=== PATIENT | female | born 1940 | race Caucasian/White ===

== ENCOUNTER 2016-09-23 12:45 | Inpatient (IN) ==
--- NOTE | 2016-09-23 12:52 | Emergency Department Note ---
Disposition Clinical Impression: Pneumonia Qualifiers: Pneumonia type: due to unspecified organism Laterality: right Lung location: upper lobe of lung Qualified Code(s): J18.1 - Lobar pneumonia, unspecified organism CHF (congestive heart failure) Qualifiers: Congestive heart failure type: unspecified congestive heart failure type Congestive heart failure chronicity: acute on chronic Qualified Code(s): I50.9 - Heart failure, unspecified Disposition: Admitted As Inpatient Condition: Good Referrals: Babatunde Messina DO [Primary Care Provider] - Forms: ED Satisfaction Letter Time of Disposition: 14:15 Altered Mental Status HPI - General Chief Complaint: ED Altered Mental Status Stated Complaint: Increased confusion, syncopal episodes - History of Present Illness HPI Narrative: Patient presents to the emergency department with and health care worker. They report intermittent episodes of near syncopal episodes. The patient has a history of either mitral valve regurg or mitral valve stenosis which apparently is nonoperable secondary to the patient's comorbidities. They have been told these episodes are to be expected and they have been instructed to limit the patient's exertional activities. Refractory Technician states that she has not had any of these episodes for the past 3-4 days. Presentation today is for evaluation of some increasing confusion over the past 24-48 hours. They also state the patient has had a nonproductive cough with some occasional wheezing and congestion. No fever or chills. No complaints of headache. No speech changes. No ataxia or gait changes. Patient is alert and oriented to person and place, somewhat confused as to the date. She is a fair historian and follows all commands appropriately. She denies any specific complaints at time of evaluation. - Related Data Home Medications Medication Instructions Recorded Confirmed Aspirin Enteric Coated [Aspirin EC] 325 mg PO DAILY 12/03/14 09/23/16 Melatonin [Melatin] 5 mg PO HS 12/03/14 09/23/16 Metoprolol [Lopressor] 100 mg PO BID 12/03/14 09/23/16 Venlafaxine [Effexor] 37.5 mg PO DAILY 12/03/14 09/23/16 Calcitriol [Rocaltrol] 0.25 mcg PO DAILY 09/23/16 09/23/16 Carbidopa/Levodopa 25/100 [Sinemet 1 each PO TID 09/23/16 09/23/16 25/100] Furosemide [Lasix] 20 mg PO BID 09/23/16 09/23/16 Mirtazapine [Remeron] 15 mg PO HS 09/23/16 09/23/16 Omeprazole [PriLOSEC] 20 mg PO DAILY 09/23/16 09/23/16 Potassium Chloride [K-Tab ER] 20 meq PO DAILY 09/23/16 09/23/16 Quetiapine Fumarate [SEROquel] 25 mg PO HS 09/23/16 09/23/16 Allergies Allergy/AdvReac Type Severity Reaction Status Date / Time amitriptyline [From Elavil] Allergy Hives Verified 12/03/14 11:48 clarithromycin [From Biaxin] Allergy Hives Verified 12/03/14 11:48 codeine Allergy See Verified 02/16/15 11:31 Comments Erythromycin Base Allergy Hives Verified 12/03/14 11:48 fluticasone Allergy Hives Verified 12/03/14 11:48 [From Advair Diskus] gabapentin Allergy Hives Verified 12/03/14 11:48 guaifenesin [From Mucinex] Allergy Hives Verified 12/03/14 11:48 levofloxacin [From Levaquin] Allergy Hives Verified 12/03/14 11:48 Penicillins Allergy Hives Verified 12/03/14 11:48 povidone-iodine Allergy Rash Verified 02/16/15 11:31 [From Betadine] prochlorperazine Allergy Hives Verified 12/03/14 11:48 [From Compazine] salmeterol Allergy Hives Verified 12/03/14 11:48 [From Advair Diskus] soap [From Betadine] Allergy Rash Verified 02/16/15 11:31 Streptomycin Allergy Hives Verified 12/03/14 11:48 Zafirlukast [From Accolate] Allergy Hives Verified 12/03/14 11:48 Constitutional: Denies: fever, chills Eyes: Denies: vision change ENT ED: Reports: congestion Cardiovascular: Reports: dyspnea on exertion (Chronic dyspnea), syncope (As per history of present illness). Denies: chest pain, palpitations Respiratory: Reports: cough, wheezes. Denies: hemoptysis, sputum production Gastrointestinal: Denies: abdominal pain, nausea, vomiting, diarrhea Genitourinary: Denies: urgency, dysuria, frequency Musculoskeletal: Denies: back pain, neck pain Integumentary: Denies: rash Neurological: Reports: as per HPI. Denies: headache Past Medical History - Past Medical History Medical history: Reports: asthma, atrial fibrillation, CHF, CVA, dementia, hypertension, migraine, TIA, other Surgical history: Reports: heart valve replacement, hysterectomy Psychiatric history: Reports: anxiety, depression - Social History Smoking Status: Never smoker Smokeless Tobacco Status: No Alcohol use: Reports: none Drug use: Reports: none Physical Exam - General Limitations: no limitations General appearance: alert, in no apparent distress - Head Head exam: atraumatic - Eye Eye exam: Present: EOMI, other (Right pupil is slightly larger than the left. 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 Absent: scleral icterus - Neck Neck exam: Present: normal inspection, full ROM. Absent: tenderness, meningismus - Respiratory Respiratory exam: Present: wheezes (Mild inspiratory expiratory wheezes. Speaking in full sentences.). Absent: respiratory distress - Cardiovascular Cardiovascular exam: Present: bradycardia, other (Atrial fibrillation) - Abdominal Exam Abdominal exam: Present: soft, Non-Tender, normal bowel sounds - Extremities Exam Extremities exam: Present: normal inspection, normal capillary refill. Absent: tenderness, joint swelling, calf tenderness - Expanded Lower Extremity Exam Neurovascular/Tendon exam: Present: normal capillary refill. Absent: pulse deficit, motor deficit, sensory deficit - Back Exam Back exam: Absent: CVA tenderness (R), CVA tenderness (L), muscle spasm - Neurological Exam Neurological exam: Present: alert, CN II-XII intact. Absent: motor sensory deficit - Psychiatric Psychiatric exam: Present: normal affect, normal mood - Skin Skin exam: Present: warm, dry, intact, normal color Course Vital Signs O2 Sat by Pulse Oximetry 98 09/23/16 12:47 Temperature 98.7 F 09/23/16 12:52 Pulse Rate 53 09/23/16 12:52 Respiratory Rate 20 09/23/16 12:52 Blood Pressure 127/73 09/23/16 12:52 O2 Sat by Pulse Oximetry 98 09/23/16 12:52 Oxygen Delivery Oxygen Delivery Nasal Cannula Altered Mental Status - Lab Data Lab results reviewed: Yes I reviewed the patient's lab results. Result diagrams: 09/23/16 13:15 09/23/16 13:15 Lab Results 09/23/16 09/23/16 09/23/16 Range/Units 13:00 13:00 13:15 WBC 8.1 (4.3-11.1) K/mcL RBC 2.99 L (3.82-4.97) M/mcL Hgb 9.8 L (11.5-15.4) g/dL Hct 30.2 L (35.3-44.9) % MCV 101.0 H (83.0-100.0) fL MCH 32.8 (28.0-33.3) pg MCHC 32.5 (31.6-35.5) g/dL RDW 14.5 (11.5-14.5) % Plt Count 160 (140-400) K/mcL MPV 11.0 (9.4-12.4) fL Immature Gran % 0.2 (0-4) % Seg Neutrophils % 82.0 % Lymphocytes % 3.3 % Monocytes % 13.4 % Eosinophils % 0.7 % Basophils % 0.4 % Neutrophils # 6.7 (1.6-8.9) K/mcL Lymphocytes # 0.3 L (0.6-4.6) K/mcL Monocytes # 1.1 (0.0-1.3) K/mcL Eosinophils # 0.1 (0.0-0.6) K/mcL Basophils # 0.0 (0.0-0.2) K/mcL PT (9.4-12.1) Seconds INR APTT (26.0-36.0) Seconds ABG pH (7.32-7.45) pH Units ABG pCO2 (35-45) mmHg ABG pO2 (85-104) mmHg ABG HCO3 (21-27) mEQ/L ABG Total CO2 (20-26) mEq/L ABG O2 Saturation (95-98) % ABG Base Excess (-2.0 to 3.0) mEq/L Liter Flow L/MIN Blood Gas Modality Inspired O2 % Sodium (136-145) mEq/L Potassium (3.5-4.5) mEq/L Chloride (98-109) mEq/L Carbon Dioxide (19-29) mEq/L BUN (7-20) mg/dL Creatinine (0.57-1.11) mg/dL Est GFR ( Amer) (> 60) Est GFR (Non-Af Amer) (> 60) BUN/Creatinine Ratio (6-26) Glucose (70-99) mg/dL Calculated Osmolality (280-300) Calcium (8.6-10.8) mg/dL Total Bilirubin (0.2-1.2) mg/dL Direct Bilirubin (0.0-0.5) mg/dL Indirect Bilirubin (0.0-1.2) mg/dL AST (5-34) Units/L ALT (0-55) Units/L Alkaline Phosphatase (38-126) Units/L Ammonia (18-72) mcmol/L Creatine Kinase (29-168) Units/L Troponin I (0-0.03) ng/mL B-Natriuretic Peptide 1055 H (0-100) pg/mL Serum Total Protein (6.0-8.3) g/dL Albumin (3.5-5.0) g/dL Globulin (2.4-3.5) g/dL Albumin/Globulin Ratio (1.1-2.2) Digoxin < 0.3 L (0.8-2.0) ng/mL Ethyl Alcohol (0-10) mg/dL 09/23/16 09/23/16 09/23/16 Range/Units 13:15 13:15 13:15 WBC (4.3-11.1) K/mcL RBC (3.82-4.97) M/mcL Hgb (11.5-15.4) g/dL Hct (35.3-44.9) % MCV (83.0-100.0) fL MCH (28.0-33.3) pg MCHC (31.6-35.5) g/dL RDW (11.5-14.5) % Plt Count (140-400) K/mcL MPV (9.4-12.4) fL Immature Gran % (0-4) % Seg Neutrophils % % Lymphocytes % % Monocytes % % Eosinophils % % Basophils % % Neutrophils # (1.6-8.9) K/mcL Lymphocytes # (0.6-4.6) K/mcL Monocytes # (0.0-1.3) K/mcL Eosinophils # (0.0-0.6) K/mcL Basophils # (0.0-0.2) K/mcL PT 12.7 H (9.4-12.1) Seconds INR 1.2 APTT 28.7 (26.0-36.0) Seconds ABG pH (7.32-7.45) pH Units ABG pCO2 (35-45) mmHg ABG pO2 (85-104) mmHg ABG HCO3 (21-27) mEQ/L ABG Total CO2 (20-26) mEq/L ABG O2 Saturation (95-98) % ABG Base Excess (-2.0 to 3.0) mEq/L Liter Flow L/MIN Blood Gas Modality Inspired O2 % Sodium 146 H (136-145) mEq/L Potassium 3.4 L (3.5-4.5) mEq/L Chloride 101 (98-109) mEq/L Carbon Dioxide 33 H (19-29) mEq/L BUN 28 H (7-20) mg/dL Creatinine 1.63 H (0.57-1.11) mg/dL Est GFR ( Amer) 37 L (> 60) Est GFR (Non-Af Amer) 31 L (> 60) BUN/Creatinine Ratio 17 (6-26) Glucose 110 H (70-99) mg/dL Calculated Osmolality 308 H (280-300) Calcium 9.0 (8.6-10.8) mg/dL Total Bilirubin 0.7 (0.2-1.2) mg/dL Direct Bilirubin 0.3 (0.0-0.5) mg/dL Indirect Bilirubin 0.4 (0.0-1.2) mg/dL AST 19 (5-34) Units/L ALT < 6 (0-55) Units/L Alkaline Phosphatase 88 (38-126) Units/L Ammonia 22 (18-72) mcmol/L Creatine Kinase 82 (29-168) Units/L Troponin I (0-0.03) ng/mL B-Natriuretic Peptide (0-100) pg/mL Serum Total Protein 6.6 (6.0-8.3) g/dL Albumin 3.5 (3.5-5.0) g/dL Globulin 3.1 (2.4-3.5) g/dL Albumin/Globulin Ratio 1.1 (1.1-2.2) Digoxin (0.8-2.0) ng/mL Ethyl Alcohol < 10 (0-10) mg/dL 09/23/16 09/23/16 Range/Units 13:15 13:18 WBC (4.3-11.1) K/mcL RBC (3.82-4.97) M/mcL Hgb (11.5-15.4) g/dL Hct (35.3-44.9) % MCV (83.0-100.0) fL MCH (28.0-33.3) pg MCHC (31.6-35.5) g/dL RDW (11.5-14.5) % Plt Count (140-400) K/mcL MPV (9.4-12.4) fL Immature Gran % (0-4) % Seg Neutrophils % % Lymphocytes % % Monocytes % % Eosinophils % % Basophils % % Neutrophils # (1.6-8.9) K/mcL Lymphocytes # (0.6-4.6) K/mcL Monocytes # (0.0-1.3) K/mcL Eosinophils # (0.0-0.6) K/mcL Basophils # (0.0-0.2) K/mcL PT (9.4-12.1) Seconds INR APTT (26.0-36.0) Seconds ABG pH 7.46 H (7.32-7.45) pH Units ABG pCO2 46 H (35-45) mmHg ABG pO2 91 (85-104) mmHg ABG HCO3 32.7 H (21-27) mEQ/L ABG Total CO2 34.1 H (20-26) mEq/L ABG O2 Saturation 97 (95-98) % ABG Base Excess 8.8 H (-2.0 to 3.0) mEq/L Liter Flow 2 L/MIN Blood Gas Modality NC Inspired O2 28 % Sodium (136-145) mEq/L Potassium (3.5-4.5) mEq/L Chloride (98-109) mEq/L Carbon Dioxide (19-29) mEq/L BUN (7-20) mg/dL Creatinine (0.57-1.11) mg/dL Est GFR ( Amer) (> 60) Est GFR (Non-Af Amer) (> 60) BUN/Creatinine Ratio (6-26) Glucose (70-99) mg/dL Calculated Osmolality (280-300) Calcium (8.6-10.8) mg/dL Total Bilirubin (0.2-1.2) mg/dL Direct Bilirubin (0.0-0.5) mg/dL Indirect Bilirubin (0.0-1.2) mg/dL AST (5-34) Units/L ALT (0-55) Units/L Alkaline Phosphatase (38-126) Units/L Ammonia (18-72) mcmol/L Creatine Kinase (29-168) Units/L Troponin I 0.02 (0-0.03) ng/mL B-Natriuretic Peptide (0-100) pg/mL Serum Total Protein (6.0-8.3) g/dL Albumin (3.5-5.0) g/dL Globulin (2.4-3.5) g/dL Albumin/Globulin Ratio (1.1-2.2) Digoxin (0.8-2.0) ng/mL Ethyl Alcohol (0-10) mg/dL ITS Impressions Chest X-Ray 09/23/16 12:50 IMPRESSION: Right upper lobe patchy airspace disease suggesting developing pneumonia. Cardiomegaly and mild central pulmonary edema suggesting mild CHF. D/ / 09/23/2016 14:00:03 Lito Cuevas MD / manny Interpreting Provider: Lito Cuevas MD Head CT 09/23/16 12:51 IMPRESSION: 1. No acute intracranial abnormality. 2. Findings compatible with chronic small vessel ischemic disease. Chronic encephalomalacia in the left occipital lobe and right cerebellar hemisphere unchanged from 2015. D/ / Andi Fried MD / Andi Fried MD Interpreting Provider: Andi Fried MD - Radiology Data Radiology results reviewed: Yes I reviewed the patient's radiology results. - EKG Data EKG attestation: Yes I reviewed and interpreted this EKG. Rate: bradycardia (Atrial fibrillation. bradycardia. nonspecific ST segment and T-wave changes ) TPA Checklist - LKW: 3-4.5 hrs Add. Warnings/Precautions Patient/family understanding: The patient/family members have been counseled and understood the risk, benefit , and alternatives of treatment.
[2016-09-23 13:21] LABS: Basophils % 0.4 %; Eosinophils # 0.1 K/mcL (0.0-0.6); Eosinophils % 0.7 %; Hematocrit 30.2 % (35.3-44.9); Hemoglobin 9.8 g/dL (11.5-15.4); Immature Granulocytes % 0.2 % (0-4); Lymphocytes # 0.3 K/mcL (0.6-4.6); Lymphocytes % 3.3 %; Mean Corpuscular HGB Conc 32.5 g/dL (31.6-35.5); Mean Corpuscular Hemoglobin 32.8 pg (28.0-33.3); Monocytes # 1.1 K/mcL (0.0-1.3); Monocytes % 13.4 %; Neutrophils # 6.7 K/mcL (1.6-8.9); Platelet Count 160 K/mcL (140-400); Red Blood Count 2.99 M/mcL (3.82-4.97); Red Cell Distribution Width 14.5 % (11.5-14.5)
[2016-09-23 13:24] LABS: INR 1.2; Prothrombin Time 12.7 Seconds (9.4-12.1)
[2016-09-23 13:26] LABS: ABG Base Excess 8.8 mEq/L (-2.0 to 3.0); ABG HCO3 32.7 mEQ/L (21-27); ABG Oxygen Saturation 97 % (95-98); ABG PCO2 46 mmHg (35-45); ABG PH 7.46 pH Units (7.32-7.45); ABG PO2 91 mmHg (85-104); ABG TCO2 34.1 mEq/L (20-26); Blood Gas FiO2 28 %; Blood Gas Liter Flow 2 L/MIN
[2016-09-23 13:27] LABS: Activated Partial Thrombo Time 28.7 Seconds (26.0-36.0)
[2016-09-23 13:39] LABS: Alanine Aminotransferase < 6 Units/L (0-55); Albumin 3.5 g/dL (3.5-5.0); Albumin/Globulin Ratio 1.1 (1.1-2.2); Alkaline Phosphatase 88 Units/L (38-126); Aspartate Amino Transferase 19 Units/L (5-34); BUN/Creatinine Ratio 17 (6-26); Bilirubin,Direct 0.3 mg/dL (0.0-0.5); Bilirubin,Indirect 0.4 mg/dL (0.0-1.2); Bilirubin,Total 0.7 mg/dL (0.2-1.2); Blood Urea Nitrogen 28 mg/dL (7-20); Carbon Dioxide 33 mEq/L (19-29); Chloride 101 mEq/L (98-109); Creatine Kinase 82 Units/L (29-168); Ethanol < 10 mg/dL (0-10); Globulin 3.1 g/dL (2.4-3.5); Glucose 110 mg/dL (70-99); Osmolality,Calculated 308 (280-300); Potassium 3.4 mEq/L (3.5-4.5); Sodium 146 mEq/L (136-145); Total Protein 6.6 g/dL (6.0-8.3); eGFR For African Americans 37 (> 60); eGFR For Non-African Americans 31 (> 60)
[2016-09-23 14:01] LABS: Thyroid Stimulating Hormone 1.701 mcIU/mL (0.350-4.840)
[2016-09-23] MEDS ORDERED: Doxycycline 100 MG in 0.9 % Sodium Chloride Mini Bag 100 ML IVPB ONE (14:12)
[2016-09-23] MEDS ORDERED: Furosemide 20 MG/2 ML VIAL IVP ONE (14:13)
[2016-09-23 14:30] LABS: Bilirubin,Urine Negative (Negative); Blood,Urine Trace-intact (Negative); Clarity,Urine Clear (Clear); Color,Urine Yellow (Yellow); Glucose,Urine (UA) Normal (Normal); Ketones,Urine Negative (Negative); Leukocyte Esterase,Urine Negative (Negative); Nitrite,Urine Negative (Negative); Protein,Urine Negative (Neg-Trace); Specific Gravity,Urine 1.015 (1.010-1.025); Urobilinogen,Urine Normal (Normal)
[2016-09-23 14:37] LABS: RBC,Urine 0-3 per hpf (0-3); Squamous Epithelial Cell,Urine Few per lpf (None-Few); WBC,Urine 0-3 per hpf (0-3)
--- NOTE | 2016-09-23 19:07 | Internal Med History&Physical ---
Date of Encounter: 09/23/16 Time of Encounter: 18:30 Assessment and Plan (1) Pneumonia Current visit: Yes Status: Acute She has been started on Rocephin and doxycycline. Lactobacillus will be added. Further workup will be done as needed. Qualifiers: Pneumonia type: due to unspecified organism Laterality: right Lung location: upper lobe of lung Qualified Code(s): J18.1 - Lobar pneumonia, unspecified organism (2) Anemia Current visit: Yes Status: Acute We will order anemia testing in a.m. Qualifiers: Anemia type: unspecified type Qualified Code(s): D64.9 - Anemia, unspecified (3) CKD (chronic kidney disease) stage 3, GFR 30-59 ml/min Current visit: Yes Status: Acute We will adjust medications and monitor renal indices. (4) Atrial fibrillation Current visit: Yes Status: Acute She was on Coumadin previously and had IC hemorrhage. Will remain on aspirin for now. Qualifiers: Atrial fibrillation type: paroxysmal Qualified Code(s): I48.0 - Paroxysmal atrial fibrillation (5) CHF (congestive heart failure) Current visit: Yes Status: Chronic Will add isosorbide and continue Lopressor for now. Qualifiers: Congestive heart failure type: unspecified congestive heart failure type Congestive heart failure chronicity: acute on chronic Qualified Code(s): I50.9 - Heart failure, unspecified Internal Medicine - H&P: HPI Chief complaint: Confusion and URI symptoms Admitted From: Home Plans for Post Hospital Care: Home History of present illness: Ms. Villafana is a 76 year old female who was brought emergency room after caregivers noted increased confusion and URI symptoms with cough and fever. She was evaluated in emergency room and felt to have right upper lobe pneumonia. She was admitted to [facility] floor for ongoing care needs. She has had pneumonia on several occasions in the past. She is a lifelong nonsmoker. She has a diagnosis of asthma. She uses oxygen 24/. She has not tested for sleep apnea. Past Med Surg Social Fam HX - Past Medical History Medical history: asthma, atrial fibrillation, CHF, CVA, dementia, hypertension, migraine, TIA, other Psychiatric history: anxiety, depression - Past Surgical History Surgical History: heart valve replacement, hysterectomy - Social History Smoking Status: Never smoker Smokeless Tobacco Status: No Alcohol use: none Drug use: none Internal Medicine - H&P: Meds Aspirin Enteric Coated [Aspirin EC] 325 mg PO DAILY 12/03/14 [History] Melatonin [Melatin] 5 mg PO HS 12/03/14 [History] Metoprolol [Lopressor] 100 mg PO BID 12/03/14 [History] Venlafaxine [Effexor] 37.5 mg PO DAILY 12/03/14 [History] Calcitriol [Rocaltrol] 0.25 mcg PO DAILY 09/23/16 [History] Carbidopa/Levodopa 25/100 [Sinemet 25/100] 1 each PO TID 09/23/16 [History] Furosemide [Lasix] 20 mg PO BID 09/23/16 [History] Mirtazapine [Remeron] 15 mg PO HS 09/23/16 [History] Omeprazole [PriLOSEC] 20 mg PO DAILY 09/23/16 [History] Potassium Chloride [K-Tab ER] 20 meq PO DAILY 09/23/16 [History] Quetiapine Fumarate [SEROquel] 25 mg PO HS 09/23/16 [History] Allergies amitriptyline [From Elavil] Allergy (Verified 12/03/14 11:48) Hives clarithromycin [From Biaxin] Allergy (Verified 12/03/14 11:48) Hives codeine Allergy (Verified 02/16/15 11:31) See Comments Erythromycin Base Allergy (Verified 12/03/14 11:48) Hives fluticasone [From Advair Diskus] Allergy (Verified 12/03/14 11:48) Hives gabapentin Allergy (Verified 12/03/14 11:48) Hives guaifenesin [From Mucinex] Allergy (Verified 12/03/14 11:48) Hives levofloxacin [From Levaquin] Allergy (Verified 12/03/14 11:48) Hives Penicillins Allergy (Verified 12/03/14 11:48) Hives povidone-iodine [From Betadine] Allergy (Verified 02/16/15 11:31) Rash prochlorperazine [From Compazine] Allergy (Verified 12/03/14 11:48) Hives salmeterol [From Advair Diskus] Allergy (Verified 12/03/14 11:48) Hives soap [From Betadine] Allergy (Verified 11/24/15 11:31) Rash Streptomycin Allergy (Verified 12/03/14 11:48) Hives Zafirlukast [From Accolate] Allergy (Verified 12/03/14 11:48) Hives All Systems PM: A 10-system review of systems was performed and is negative for pertinent findings except as documented above in the HPI. Review of systems: Gen.: Her weight has fluctuated based on fluid retention. Her caregiver estimates her "dry weight" is 138 pounds. Her weight on admission was 86.183 kg. Cardiovascular: She has history of hypertension, atrial fibrillation, and "CHF" although an echocardiogram done 12/21/2015 showed LVEF of 55% with indeterminate diastolic function. There was reported biatrial enlargement although left atrial size was 4.0 cm. Right atrial sizes not recorded. There was reported to be moderate mitral stenosis, mild MR, mild TR, and moderate pulmonary regurgitation with estimated RVSP of 60. She had a Regadenoson EST which showed nondiagnostic EKG changes due to baseline ST abnormalities. Perfusion imaging was negative for ischemia or infarct. She has not had PA DVT or pulmonary embolus. 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 There are no other known kidney or bladder disorders Neurologic: She has Parkinson's disease and a diagnosis of dementia. 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 She has not had seizures Endocrine: Family reports borderline hyperlipidemia but denies diabetes or thyroid disease Hematology/oncology: She had macrocytic anemia on blood work in emergency room. There is no history of internal malignancy Psychiatric: She has history of depression Musk skeletal: She has no significant arthritis gout or other bone joint or muscle disorders. - Constitutional Vitals: Temp Pulse Resp BP Pulse Ox 99.3 F 62 16 152/73 95 09/23/16 18:15 09/23/16 18:15 09/23/16 18:15 09/23/16 18:15 09/23/16 18:15 Exam: Gen.: She is a well-developed well-nourished female lying in bed who appears mildly dyspneic HEENT: Head is atraumatic and normocephalic. Eyes: She has slightly smaller left pupil than right pupil. Her gaze is minimally disconjugate. There is no scleral icterus. Mouth: Mucosa is moist Neck: Supple and nontender. There is no thyromegaly or adenopathy noted. Heart: Regular without murmurs gallops or ectopics Lungs: She had scattered rhonchi with minimal expiratory wheezing diffusely. Abdomen: Soft and nontender. There are no masses or guarding noted. Extremities: There is no cyanosis edema or clubbing noted. Dorsalis pedis and posterior tibial pulses are trace palpable bilaterally. Her feet are warm to touch. Neurologic: Mental status: She is awake but is not conversational. She is an occasional one-word answer to questions. Cranial nerves: Her facial movements are minimal but appear symmetric. Her gaze is slightly disconjugate but EOMI. Tongue protrudes minimally but midline. Forehead wrinkles bilaterally. Motor: There is no pronator drift. She has Parkinson's tremor of her hands with cogwheeling and rigidity on passive range of motion of her arms. No further neurologic testing is attempted. Skin: Warm and dry Internal Med - H&P Results - Labs CBC & Chem 7: 09/23/16 13:15 09/23/16 13:15 - VTE Reasons for not Prescribing Prophylaxis: Treatment not Indicated - Low risk for VTE
[2016-09-23] MEDS ORDERED: Acetaminophen 325 MG TABLET PO PRN (19:32)
[2016-09-23] MEDS: 0.45 % Sodium Chloride w/KCl 20 MEQ/1,000 ML MLS IVC SCH (20:37)
[2016-09-23] MEDS: Mirtazapine 15 MG TABLET PO SCH (20:40)
[2016-09-23] MEDS: Carbidopa/Levodopa 25/100 TABLET PO SCH (20:40)
[2016-09-23] MEDS: Melatonin 3 MG TABLET PO SCH (20:40)
[2016-09-23] MEDS: Lactobacillus 1 EACH CAP.SPRINK PO SCH (20:40)
[2016-09-23] MEDS: Isosorbide MONOnitrate (24 HR) 30 MG TAB.ER.24H PO SCH (20:53)
[2016-09-24] MEDS: Doxycycline 100 MG in 0.9 % Sodium Chloride Mini Bag 100 ML IVPB SCH ×2 (05:53→17:38)
[2016-09-24 07:29] LABS: Basophils % 0.2 %; Eosinophils # 0.1 K/mcL (0.0-0.6); Eosinophils % 2.4 %; Hematocrit 27.8 % (35.3-44.9); Immature Granulocytes % 0.2 % (0-4); Lymphocytes # 0.3 K/mcL (0.6-4.6); Lymphocytes % 6.8 %; Mean Corpuscular HGB Conc 32.4 g/dL (31.6-35.5); Mean Corpuscular Volume 101.8 fL (83.0-100.0); Mean Platelet Volume 11.3 fL (9.4-12.4); Monocytes # 0.7 K/mcL (0.0-1.3); Neutrophils # 3.5 K/mcL (1.6-8.9); Platelet Count 129 K/mcL (140-400); Red Blood Count 2.73 M/mcL (3.82-4.97); Red Cell Distribution Width 14.6 % (11.5-14.5); Segmented Neutrophils % 75.4 %
[2016-09-24 07:38] LABS: Calcium 8.8 mg/dL (8.6-10.8); Potassium 3.5 mEq/L (3.5-4.5)
[2016-09-24] MEDS: Lactobacillus 1 EACH CAP.SPRINK PO SCH ×2 (08:18→20:13)
[2016-09-24] MEDS: Aspirin 81 MG TAB.CHEW PO SCH (08:18)
[2016-09-24] MEDS: Isosorbide MONOnitrate (24 HR) 30 MG TAB.ER.24H PO SCH (08:18)
[2016-09-24] MEDS: Carbidopa/Levodopa 25/100 TABLET PO SCH ×3 (08:18→16:38)
--- NOTE | 2016-09-24 09:05 | Internal Med Progress Note ---
Date of Encounter: 09/24/16 Time of Encounter: 08:55 - Assessment and plan (1) Pneumonia Current Visit: Yes Status: Acute Assessment and plan: September 24. Continue Rocephin, doxycycline, and lactobacillus. Qualifiers: Pneumonia type: due to unspecified organism Laterality: right Lung location: upper lobe of lung Qualified Code(s): J18.1 - Lobar pneumonia, unspecified organism (2) Anemia Current Visit: Yes Status: Acute Assessment and plan: September 24. Anemia testing is pending. Qualifiers: Anemia type: unspecified type Qualified Code(s): D64.9 - Anemia, unspecified (3) CKD (chronic kidney disease) stage 3, GFR 30-59 ml/min Current Visit: Yes Status: Acute Assessment and plan: September 24. Azotemia slightly improved. Continue to hold Lasix and give IV fluids. Check labs in a.m. (4) Atrial fibrillation Current Visit: Yes Status: Acute Assessment and plan: September 24. Continue aspirin Qualifiers: Atrial fibrillation type: paroxysmal Qualified Code(s): I48.0 - Paroxysmal atrial fibrillation (5) CHF (congestive heart failure) Current Visit: Yes Status: Chronic Assessment and plan: September 24. Continue isosorbide and Lopressor. Qualifiers: Congestive heart failure type: unspecified congestive heart failure type Congestive heart failure chronicity: acute on chronic Qualified Code(s): I50.9 - Heart failure, unspecified - Subjective Interval history: September 24. She has no new complaints and states she feels better overall. - Constitutional Vitals: Temp Pulse Resp BP Pulse Ox 98.1 F 72 18 128/52 92 09/24/16 08:00 09/24/16 08:00 09/24/16 08:00 09/24/16 08:00 09/24/16 08:38 Exam: She is sitting in bed and appears in minimal respiratory distress. Her lungs show prolonged expiratory phase with scattered rhonchi and mild diffuse wheezing. Heart tones are soft. Extremities show no edema. I reviewed her medications and lab results. Internal Medicine: Result - Labs CBC & Chem 7: 09/24/16 07:10 09/24/16 07:10 Labs: Short CBC 09/24/16 Range/Units 07:10 WBC 4.7 (4.3-11.1) K/mcL Hgb 9.0 L (11.5-15.4) g/dL Hct 27.8 L (35.3-44.9) % Plt Count 129 L (140-400) K/mcL Neutrophils # 3.5 (1.6-8.9) K/mcL BMP 09/24/16 07:10 Sodium 145 Potassium 3.5 Chloride 101 Carbon Dioxide 33 H BUN 26 H Creatinine 1.48 H Glucose 105 H Calcium 8.8 Cardiac Enzymes 09/23/16 09/24/16 09/24/16 Range/Units 19:06 01:35 07:10 Troponin I 0.03 0.04 H* 0.04 H* (0-0.03) ng/mL - ABG Interpretation ABG results: ABG ABG pH 7.46 pH Units (7.32-7.45) H 09/23/16 13:18 ABG pCO2 46 mmHg (35-45) H 09/23/16 13:18 ABG pO2 91 mmHg (85-104) 09/23/16 13:18 ABG O2 Saturation 97 % (95-98) 09/23/16 13:18 PT/INR, D-dimer PT 12.7 Seconds (9.4-12.1) H 09/23/16 13:15 - VTE Reasons for not Prescribing Prophylaxis: Treatment not Indicated - Low risk for VTE Consult Discharge Plan - Plan Referrals: Babatunde Messina DO [Primary Care Provider] - 1 week
[2016-09-24] MEDS: 0.45 % Sodium Chloride w/KCl 20 MEQ/1,000 ML MLS IVC SCH (16:37)
[2016-09-24 17:14] LABS: Folate 7.8 ng/mL (7.0-31.4)
[2016-09-24] MEDS: Mirtazapine 15 MG TABLET PO SCH (20:12)
[2016-09-24] MEDS: Melatonin 3 MG TABLET PO SCH (20:13)
[2016-09-25] MEDS: Doxycycline 100 MG in 0.9 % Sodium Chloride Mini Bag 100 ML IVPB SCH (06:07)
[2016-09-25 06:21] LABS: Basophils % 0.4 %; Eosinophils # 0.3 K/mcL (0.0-0.6); Eosinophils % 4.9 %; Hematocrit 32.1 % (35.3-44.9); Hemoglobin 10.2 g/dL (11.5-15.4); Immature Granulocytes % 0.2 % (0-4); Lymphocytes # 0.4 K/mcL (0.6-4.6); Lymphocytes % 7.5 %; Mean Corpuscular HGB Conc 31.8 g/dL (31.6-35.5); Mean Corpuscular Hemoglobin 32.8 pg (28.0-33.3); Mean Corpuscular Volume 103.2 fL (83.0-100.0); Mean Platelet Volume 11.5 fL (9.4-12.4); Monocytes # 0.9 K/mcL (0.0-1.3); Monocytes % 16.4 %; Neutrophils # 3.9 K/mcL (1.6-8.9); Platelet Count 145 K/mcL (140-400); Red Blood Count 3.11 M/mcL (3.82-4.97); Red Cell Distribution Width 14.4 % (11.5-14.5); Segmented Neutrophils % 70.6 %
[2016-09-25 07:01] LABS: Calcium 9.5 mg/dL (8.6-10.8)
[2016-09-25 07:41] VITALS: BP 158/69
[2016-09-25] MEDS ORDERED: Carbidopa/Levodopa 25/100 TABLET PO SCH (08:00)
[2016-09-25] MEDS: Aspirin 81 MG TAB.CHEW PO SCH (08:17)
[2016-09-25] MEDS: Lactobacillus 1 EACH CAP.SPRINK PO SCH (08:17)
[2016-09-25] MEDS: Isosorbide MONOnitrate (24 HR) 30 MG TAB.ER.24H PO SCH (08:17)
--- NOTE | 2016-09-25 10:09 | Discharge Summary ---
Date of Encounter: 09/25/16 Time of Encounter: 09:55 - Discharge Diagnosis (1) Pneumonia Priority: Primary Status: Acute Qualifiers: Pneumonia type: due to unspecified organism Laterality: right Lung location: upper lobe of lung Qualified Code(s): J18.1 - Lobar pneumonia, unspecified organism (2) Anemia Priority: Secondary Status: Acute Qualifiers: Anemia type: unspecified type Qualified Code(s): D64.9 - Anemia, unspecified (3) CKD (chronic kidney disease) stage 3, GFR 30-59 ml/min Priority: Secondary Status: Chronic (4) Atrial fibrillation Priority: Secondary Status: Chronic Qualifiers: Atrial fibrillation type: paroxysmal Qualified Code(s): I48.0 - Paroxysmal atrial fibrillation (5) CHF (congestive heart failure) Priority: Secondary Status: Chronic Qualifiers: Congestive heart failure type: unspecified congestive heart failure type Congestive heart failure chronicity: acute on chronic Qualified Code(s): I50.9 - Heart failure, unspecified - Discharge Medications Prescriptions: Cefuroxime PO [Ceftin] 500 mg PO Q12HR #6 tablet Bumetanide [Bumex] 0.5 mg PO DAILY #15 tablet Doxycycline 100 mg PO BID #6 capsule Isosorbide MONOnitrate (24 HR) [Imdur] 30 mg PO DAILY #30 tab.er.24h Lactobacillus [Culturelle] 1 each PO BID #6 cap.sprink Home Medications: Melatonin [Melatin] 5 mg PO HS 12/03/14 [History] Metoprolol [Lopressor] 100 mg PO BID 12/03/14 [History] Venlafaxine [Effexor] 37.5 mg PO DAILY 12/03/14 [History] Calcitriol [Rocaltrol] 0.25 mcg PO DAILY 09/23/16 [History] Carbidopa/Levodopa 25/100 [Sinemet 25/100] 1 each PO TID 09/23/16 [History] Mirtazapine [Remeron] 15 mg PO HS 09/23/16 [History] Omeprazole [PriLOSEC] 20 mg PO DAILY 09/23/16 [History] Potassium Chloride [K-Tab ER] 20 meq PO DAILY 09/23/16 [History] Quetiapine Fumarate [Seroquel] 25 mg PO HS 09/23/16 [History] Aspirin 81 mg PO DAILY tab.chew 09/25/16 [Rx] Bumetanide [Bumex] 0.5 mg PO DAILY #15 tablet 09/25/16 [Rx] Cefuroxime PO [Ceftin] 500 mg PO Q12HR #6 tablet 09/25/16 [Rx] Doxycycline 100 mg PO BID #6 capsule 09/25/16 [Rx] Isosorbide MONOnitrate (24 HR) [Imdur] 30 mg PO DAILY #30 tab.er.24h 09/25/16 [ Rx] Lactobacillus [Culturelle] 1 each PO BID #6 cap.sprink 09/25/16 [Rx] Allergies/Adverse Reactions: Allergies amitriptyline [From Elavil] Allergy (Verified 12/03/14 11:48) Hives clarithromycin [From Biaxin] Allergy (Verified 12/03/14 11:48) Hives codeine Allergy (Verified 02/16/15 11:31) See Comments Erythromycin Base Allergy (Verified 12/03/14 11:48) Hives fluticasone [From Advair Diskus] Allergy (Verified 12/03/14 11:48) Hives gabapentin Allergy (Verified 12/03/14 11:48) Hives guaifenesin [From Mucinex] Allergy (Verified 12/03/14 11:48) Hives levofloxacin [From Levaquin] Allergy (Verified 12/03/14 11:48) Hives Penicillins Allergy (Verified 12/03/14 11:48) Hives povidone-iodine [From Betadine] Allergy (Verified 02/16/15 11:31) Rash prochlorperazine [From Compazine] Allergy (Verified 12/03/14 11:48) Hives salmeterol [From Advair Diskus] Allergy (Verified 12/03/14 11:48) Hives soap [From Betadine] Allergy (Verified 02/16/15 11:31) Rash Streptomycin Allergy (Verified 12/03/14 11:48) Hives Zafirlukast [From Accolate] Allergy (Verified 12/03/14 11:48) Hives Date of admission: 09/23/16 16:22 Primary care physician: Babatunde Messina, DO - Patient Status Disposition: Home, Self-Care Condition: Good Overall status at discharge: patient is progressing back to baseline - Discharge Instructions Follow Up With: Babatunde Messina DO [Primary Care Provider] - 1 week - Diet and Activity Activity: resume usual activities as tolerated Diet: advance to your usual diet Hospital course: Ms. Villafana is a 76 year old female who was brought emergency room after caregivers noted increased confusion and URI symptoms with cough and fever. She was evaluated in emergency room and felt to have right upper lobe pneumonia. She was admitted to [facility] floor for ongoing care needs. Initial orders were written by the emergency room physician. I saw her on September 23 and performed the history and physical. She was started on Rocephin and doxycycline with lactobacillus. She had a clinical improvement with normalization of the WBC differential by the day of discharge. She remained afebrile. She will continue with Ceftin and doxycycline with lactobacillus for 3 additional days after discharge. Her Lasix was discontinued and she was given Imdur. Her BNP peptide improved to 610 by the day of discharge. She will start Bumex or 0.5 mg daily and continue Imdur at discharge. Hemoglobin ottoniel to 10.2 on the day of discharge. There were no other new problems and on September 25 I felt she was stable for discharge home. She will follow with her PCP Dr. Messina within 1 week. - Time Spent with Patient Total time spent providing and/or coordinating discharge services: - Constitutional Vitals: Temp Pulse Resp BP Pulse Ox 98.0 F 94 14 158/69 96 09/25/16 07:15 09/25/16 07:15 09/25/16 07:15 09/25/16 07:15 09/25/16 08:30 - VTE Reasons for not Prescribing Prophylaxis: Treatment not Indicated - Low risk for VTE
--- NOTE | 2016-09-25 12:59 | Electrocardiograph Report ---
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
== END 2016-09-25 11:07 | disposition home or self-care (01) | DRG 194 ==
LOC: INPPIK 12:45 → EMEROOPIK 12:45 → INPPIK 15:50
PROVIDERS: ADMIT Internal Medicine; ATTEND Internal Medicine

== ENCOUNTER 2017-02-21 17:49 | Inpatient (IN) ==
--- NOTE | 2017-02-21 18:28 | Emergency Department Note ---
Disposition Clinical Impression: Chronic a-fib, CKD (chronic kidney disease) stage 3, GFR 30-59 ml/min, CHF ( congestive heart failure), UTI (urinary tract infection) Disposition: Admitted As Inpatient Condition: Good Referrals: Babatunde Messina DO [Primary Care Provider] - Forms: ED Satisfaction Letter Time of Disposition: 20:02 SOB HPI - General Chief Complaint: ED Shortness of Breath/Dyspnea Stated Complaint: madonna, worse today Time Seen by Provider: 02/21/17 18:15 Source: patient Mode of arrival: ambulatory Limitations: no limitations Nursing Notes Reviewed: Yes Vital Signs Reviewed: Yes - History of Present Illness Pt Subjective Complaint: shortness of breath Onset (ago): day(s) (3-4) Context: other (prior hx of similar) Severity: moderate Consistency/Duration: gradually worsening Improves with: oxygen Worsens with: exertion Known history of: congestive heart failure, recurrent pneumonia Associated symptoms: Reports: cough, wheezing. Denies: chest pain, pain with inspiration, fever, sputum production, orthopnea, lower extremity pain, polyuria , polydipsia, parasthesias, palpitations, hemoptysis, diaphoresis, nausea/ vomiting, syncope, abdominal pain Treatment prior to arrival: none Cough Description: Involuntary, Weak, Wheezy Sputum production: No - Related Data Home Medications Medication Instructions Recorded Confirmed Melatonin [Melatin] 5 mg PO HS 12/03/14 02/21/17 Metoprolol [Lopressor] 100 mg PO BID 12/03/14 02/21/17 Venlafaxine [Effexor] 37.5 mg PO DAILY 12/03/14 02/21/17 Calcitriol [Rocaltrol] 0.25 mcg PO DAILY 09/23/16 02/21/17 Carbidopa/Levodopa 25/100 [Sinemet 1 each PO 1200,1700 09/23/16 02/21/17 25/100] Mirtazapine [Remeron] 22.5 mg PO HS 09/23/16 02/21/17 Omeprazole [PriLOSEC] 20 mg PO DAILY 09/23/16 02/21/17 Potassium Chloride [K-Tab ER] 20 meq PO DAILY 09/23/16 02/21/17 Quetiapine Fumarate [Seroquel] 25 mg PO HS 09/23/16 02/21/17 Carbidopa/Levodopa 25/100 [Sinemet 1.5 each PO QAM 01/10/17 02/21/17 25/100] Polyethylene Glycol 3350 [MiraLAX] 17 gm PO DAILY 02/21/17 02/21/17 Previous Rx's Medication Instructions Recorded Aspirin 81 mg PO DAILY tab.chew 09/25/16 Bumetanide [Bumex] 0.5 mg PO DAILY #15 tablet 09/25/16 Isosorbide MONOnitrate (24 HR) 30 mg PO DAILY #30 tab.er.24h 09/25/16 [Imdur] Allergies Allergy/AdvReac Type Severity Reaction Status Date / Time amitriptyline [From Elavil] Allergy Hives Verified 02/21/17 17:51 clarithromycin [From Biaxin] Allergy Hives Verified 02/21/17 17:51 codeine Allergy See Verified 02/21/17 17:51 Comments Erythromycin Base Allergy Hives Verified 02/21/17 17:51 fluticasone Allergy Hives Verified 02/21/17 17:51 [From Advair Diskus] gabapentin Allergy Hives Verified 02/21/17 17:51 guaifenesin [From Mucinex] Allergy Hives Verified 02/21/17 17:51 levofloxacin [From Levaquin] Allergy Hives Verified 02/21/17 17:51 Penicillins Allergy Hives Verified 02/21/17 17:51 povidone-iodine Allergy Rash Verified 02/21/17 17:51 [From Betadine] prochlorperazine Allergy Hives Verified 02/21/17 17:51 [From Compazine] salmeterol Allergy Hives Verified 02/21/17 17:51 [From Advair Diskus] soap [From Betadine] Allergy Rash Verified 02/21/17 17:51 Streptomycin Allergy Hives Verified 02/21/17 17:51 Zafirlukast [From Accolate] Allergy Hives Verified 02/21/17 17:51 All systems ED: reviewed and negative except as stated. Review of Systems: As Per HPI Constitutional: Reports: weakness. Denies: fever, chills Eyes: Denies: eye pain, eye discharge ENT ED: Denies: ear pain, throat pain Cardiovascular: Denies: chest pain, palpitations, dyspnea on exertion Respiratory: Reports: cough, dyspnea Gastrointestinal: Denies: abdominal pain, nausea Genitourinary: Denies: urgency, dysuria, frequency Musculoskeletal: Denies: back pain, neck pain Integumentary: Denies: rash Neurological: Denies: headache Psychiatric: Denies: anxiety Endocrine: Reports: fatigue Hematological/Lymphatic: Denies: easy bleeding Allergic/Immunologic: Denies: facial swelling Past Medical History - Past Medical History Attestation: Yes The following information was validated with the patient. Source: patient, old records reviewed, obtained from family, nursing notes reviewed Medical history: Reports: asthma, atrial fibrillation, CHF, CVA, dementia, hypertension, migraine, TIA, other Surgical history: Reports: heart valve replacement, hysterectomy Psychiatric history: Reports: anxiety, depression - Social History Smoking Status: Never smoker Smokeless Tobacco Status: No Alcohol use: Reports: none Drug use: Reports: none Physical Exam - General Limitations: physical limitation General appearance: alert, in no apparent distress, lethargic, other (Frail in appearance with a horseshoe C collar resting around her neck to prevent her head from drooping too far appears to have increased lordosis in the cervical spine increased kyphosis in the thoracic) - Head Head exam: atraumatic, normocephalic, normal inspection - Eye Eye exam: Present: normal appearance, PERRL, EOMI - ENT ENT exam: normal exam, normal oropharynx, mucous membranes moist, normal external ear exam - Neck Neck exam: Present: normal inspection, full ROM, trachea midline - Chest Chest inspection: Present: normal inspection, symmetric chest wall rise - Respiratory Respiratory exam: Present: other (crackles) - Cardiovascular Cardiovascular exam: Present: irregular rhythm, normal heart sounds - Abdominal Exam Abdominal exam: Present: soft, Non-Tender, normal bowel sounds. Absent: mass, pulsatile mass - Extremities Exam Extremities exam: Present: normal capillary refill. Absent: pedal edema, joint swelling, calf tenderness - Expanded Upper Extremity Exam Shoulder exam: Present: normal inspection, full ROM Arm exam: Present: normal inspection, full ROM Elbow exam: Present: normal inspection, full ROM Forearm/Wrist exam: Present: normal inspection, full ROM Hand exam: Present: normal inspection, full ROM Neurosensory exam: Normal: radial nerve, ulnar nerve, median nerve Vascular exam: Normal: capillary refill, radial pulse, ulnar pulse - Expanded Lower Extremity Exam Hip/Pelvis exam: Present: normal inspection Upper leg exam: Present: normal inspection Knee exam: Present: normal inspection Lower leg exam: Present: normal inspection Ankle exam: Present: normal inspection, full ROM Foot/toe exam: Present: normal inspection, full ROM Neurovascular/Tendon exam: Present: normal capillary refill, normal fine/light touch Gait: not tested/not observed - Back Exam Back exam: Present: normal inspection, full ROM. Absent: muscle spasm - Neurological Exam Neurological exam: Present: alert, oriented X3, CN II-XII intact - Psychiatric Psychiatric exam: Present: flat affect - Skin Skin exam: Present: warm, dry, intact, normal color Course Course Narrative: She was seen and examined cardiac workup was done on patient because of her underlying atrial fib which included blood cultures and lactic acid to make sure she does not have underlying pneumonia patient was then admitted for observation service of Dr. Burgess [facility] Vital Signs Temperature 99.3 F 02/21/17 17:55 Pulse Rate 64 02/21/17 17:55 Respiratory Rate 20 02/21/17 17:55 Blood Pressure 146/87 02/21/17 17:55 O2 Sat by Pulse Oximetry 98 02/21/17 17:55 Temperature 99.3 F 02/21/17 17:55 Pulse Rate 73 02/21/17 19:45 Respiratory Rate 18 02/21/17 19:45 Blood Pressure 112/81 02/21/17 19:45 O2 Sat by Pulse Oximetry 100 02/21/17 19:45 Oxygen Delivery Oxygen Delivery Nasal Cannula Shortness of Breath/Dyspnea - [facility] Narrative Medical decision making narrative: UTI infection - Differential Diagnosis Likely: acute exacerbation of chronic obstructive airways disease, congestive heart failure, pneumonia - Medical Records Medical records reviewed: Yes I reviewed the patient's medical records. - Lab Data Lab results reviewed: Yes I reviewed the patient's lab results. Result diagrams: 02/21/17 18:48 02/21/17 18:48 Lab Results 02/21/17 02/21/17 02/21/17 Range/Units 18:48 18:48 18:48 WBC 10.5 (4.3-11.1) K/mcL RBC 3.06 L (3.82-4.97) M/mcL Hgb 9.9 L (11.5-15.4) g/dL Hct 30.3 L (35.3-44.9) % MCV 99.0 (83.0-100.0) fL MCH 32.4 (28.0-33.3) pg MCHC 32.7 (31.6-35.5) g/dL RDW 14.6 H (11.5-14.5) % Plt Count 157 (140-400) K/mcL MPV 11.1 (9.4-12.4) fL Immature Gran % 0.5 (0-4) % Seg Neutrophils % 88.2 % Lymphocytes % 2.4 % Monocytes % 8.4 % Eosinophils % 0.2 % Basophils % 0.3 % Neutrophils # 9.3 H (1.6-8.9) K/mcL Lymphocytes # 0.3 L (0.6-4.6) K/mcL Monocytes # 0.9 (0.0-1.3) K/mcL Eosinophils # 0.0 (0.0-0.6) K/mcL Basophils # 0.0 (0.0-0.2) K/mcL PT (9.4-12.1) Seconds INR APTT 28.4 (26.0-36.0) Seconds Sodium 141 (136-145) mEq/L Potassium 3.4 L (3.5-4.5) mEq/L Chloride 100 (98-109) mEq/L Carbon Dioxide 32 H (19-29) mEq/L BUN 24 H (7-20) mg/dL Creatinine 1.31 H (0.57-1.11) mg/dL Est GFR ( Amer) 48 L (> 60) Est GFR (Non-Af Amer) 39 L (> 60) BUN/Creatinine Ratio 18 (6-26) Glucose 122 H (70-99) mg/dL Calculated Osmolality 297 (280-300) Lactic Acid (0.5-2.2) mmol/L Calcium 9.0 (8.6-10.8) mg/dL Troponin I (0-0.03) ng/mL B-Natriuretic Peptide (0-100) pg/mL Urine Color (Yellow) Urine Clarity (Clear) Urine pH (5.0-8.0) pH Units Ur Specific [place] (1.010-1.025) Urine Protein (Neg-Trace) mg/dL Urine Glucose (UA) (Normal) mg/dL Urine Ketones (Negative) mg/dL Urine Blood (Negative) Urine Nitrite (Negative) Urine Bilirubin (Negative) Urine Urobilinogen (Normal) mg/dL Ur Leukocyte Esterase (Negative) Urine Microscopic RBC (0-3) per hpf Urine Microscopic WBC (0-3) per hpf Amorphous Sediment (Few) Urine Bacteria (None-Few) per hpf Ur Culture Indicated? (NO) Blood Type Antibody Screen 02/21/17 02/21/17 02/21/17 Range/Units 18:48 18:48 18:48 WBC (4.3-11.1) K/mcL RBC (3.82-4.97) M/mcL Hgb (11.5-15.4) g/dL Hct (35.3-44.9) % MCV (83.0-100.0) fL MCH (28.0-33.3) pg MCHC (31.6-35.5) g/dL RDW (11.5-14.5) % Plt Count (140-400) K/mcL MPV (9.4-12.4) fL Immature Gran % (0-4) % Seg Neutrophils % % Lymphocytes % % Monocytes % % Eosinophils % % Basophils % % Neutrophils # (1.6-8.9) K/mcL Lymphocytes # (0.6-4.6) K/mcL Monocytes # (0.0-1.3) K/mcL Eosinophils # (0.0-0.6) K/mcL Basophils # (0.0-0.2) K/mcL PT 14.3 H (9.4-12.1) Seconds INR 1.3 APTT (26.0-36.0) Seconds Sodium (136-145) mEq/L Potassium (3.5-4.5) mEq/L Chloride (98-109) mEq/L Carbon Dioxide (19-29) mEq/L BUN (7-20) mg/dL Creatinine (0.57-1.11) mg/dL Est GFR ( Amer) (> 60) Est GFR (Non-Af Amer) (> 60) BUN/Creatinine Ratio (6-26) Glucose (70-99) mg/dL Calculated Osmolality (280-300) Lactic Acid 0.9 (0.5-2.2) mmol/L Calcium (8.6-10.8) mg/dL Troponin I (0-0.03) ng/mL B-Natriuretic Peptide 637 H (0-100) pg/mL Urine Color (Yellow) Urine Clarity (Clear) Urine pH (5.0-8.0) pH Units Ur Specific [place] (1.010-1.025) Urine Protein (Neg-Trace) mg/dL Urine Glucose (UA) (Normal) mg/dL Urine Ketones (Negative) mg/dL Urine Blood (Negative) Urine Nitrite (Negative) Urine Bilirubin (Negative) Urine Urobilinogen (Normal) mg/dL Ur Leukocyte Esterase (Negative) Urine Microscopic RBC (0-3) per hpf Urine Microscopic WBC (0-3) per hpf Amorphous Sediment (Few) Urine Bacteria (None-Few) per hpf Ur Culture Indicated? (NO) Blood Type Antibody Screen 02/21/17 02/21/17 02/21/17 Range/Units 18:48 18:48 19:30 WBC (4.3-11.1) K/mcL RBC (3.82-4.97) M/mcL Hgb (11.5-15.4) g/dL Hct (35.3-44.9) % MCV (83.0-100.0) fL MCH (28.0-33.3) pg MCHC (31.6-35.5) g/dL RDW (11.5-14.5) % Plt Count (140-400) K/mcL MPV (9.4-12.4) fL Immature Gran % (0-4) % Seg Neutrophils % % Lymphocytes % % Monocytes % % Eosinophils % % Basophils % % Neutrophils # (1.6-8.9) K/mcL Lymphocytes # (0.6-4.6) K/mcL Monocytes # (0.0-1.3) K/mcL Eosinophils # (0.0-0.6) K/mcL Basophils # (0.0-0.2) K/mcL PT (9.4-12.1) Seconds INR APTT (26.0-36.0) Seconds Sodium (136-145) mEq/L Potassium (3.5-4.5) mEq/L Chloride (98-109) mEq/L Carbon Dioxide (19-29) mEq/L BUN (7-20) mg/dL Creatinine (0.57-1.11) mg/dL Est GFR ( Amer) (> 60) Est GFR (Non-Af Amer) (> 60) BUN/Creatinine Ratio (6-26) Glucose (70-99) mg/dL Calculated Osmolality (280-300) Lactic Acid (0.5-2.2) mmol/L Calcium (8.6-10.8) mg/dL Troponin I 0.03 (0-0.03) ng/mL B-Natriuretic Peptide (0-100) pg/mL Urine Color Yellow (Yellow) Urine Clarity Slightly Cloudy A (Clear) Urine pH 5.0 (5.0-8.0) pH Units Ur Specific [place] 1.020 (1.010-1.025) Urine Protein 30 H (Neg-Trace) mg/dL Urine Glucose (UA) Normal (Normal) mg/dL Urine Ketones Negative (Negative) mg/dL Urine Blood Trace-lysed H (Negative) Urine Nitrite Positive A (Negative) Urine Bilirubin Negative (Negative) Urine Urobilinogen Normal (Normal) mg/dL Ur Leukocyte Esterase Small H (Negative) Urine Microscopic RBC 5-15 H (0-3) per hpf Urine Microscopic WBC 50-100 H (0-3) per hpf Amorphous Sediment Few (Few) Urine Bacteria Moderate H (None-Few) per hpf Ur Culture Indicated? YES A (NO) Blood Type A POSITIVE Antibody Screen NEGATIVE - Radiology Data Radiology results reviewed: Yes I reviewed the patient's radiology results. - EKG Data EKG attestation: Yes I reviewed and interpreted this EKG. EKG results narrative: Atrial fib nonspecific T-wave changes rate 68 QRS 85 QT 367 access -1 Critical Care Time Critical Care Time: No
[2017-02-21] MEDS ORDERED: Levofloxacin 500 MG/100 ML 500 MG/100 ML BAG IVPB ONE (18:50)
[2017-02-21] MEDS ORDERED: Bumetanide 1 MG/4 ML VIAL IVP ONE (18:50)
[2017-02-21 19:05] LABS: Basophils % 0.3 %; Eosinophils % 0.2 %; Hematocrit 30.3 % (35.3-44.9); Hemoglobin 9.9 g/dL (11.5-15.4); Immature Granulocytes % 0.5 % (0-4); Lymphocytes # 0.3 K/mcL (0.6-4.6); Lymphocytes % 2.4 %; Mean Corpuscular HGB Conc 32.7 g/dL (31.6-35.5); Mean Corpuscular Hemoglobin 32.4 pg (28.0-33.3); Mean Platelet Volume 11.1 fL (9.4-12.4); Monocytes # 0.9 K/mcL (0.0-1.3); Monocytes % 8.4 %; Neutrophils # 9.3 K/mcL (1.6-8.9); Platelet Count 157 K/mcL (140-400); Red Blood Count 3.06 M/mcL (3.82-4.97); Red Cell Distribution Width 14.6 % (11.5-14.5); Segmented Neutrophils % 88.2 %
[2017-02-21 19:19] LABS: Potassium 3.4 mEq/L (3.5-4.5)
[2017-02-21 19:23] LABS: INR 1.3; Prothrombin Time 14.3 Seconds (9.4-12.1)
[2017-02-21 19:43] LABS: Bilirubin,Urine Negative (Negative); Blood,Urine Trace-lysed (Negative); Clarity,Urine Slightly Cloudy (Clear); Color,Urine Yellow (Yellow); Glucose,Urine (UA) Normal (Normal); Ketones,Urine Negative (Negative); Leukocyte Esterase,Urine Small (Negative); Nitrite,Urine Positive (Negative); Protein,Urine 30 mg/dL (Neg-Trace); Urobilinogen,Urine Normal (Normal)
[2017-02-21 19:52] LABS: WBC,Urine 50-100 per hpf (0-3)
[2017-02-21 19:53] LABS: Amorphous Sediment,Urine Few (Few); Bacteria,Urine Moderate per hpf (None-Few)
[2017-02-21] MEDS ORDERED: Naloxone 0.4 MG/ML INJ IVP PRN (21:42)
[2017-02-21] MEDS ORDERED: Melatonin 3 MG TABLET PO SCH (21:42)
[2017-02-21] MEDS ORDERED: Ondansetron ODT 4 MG TAB.RAPDIS SL PRN (21:42)
[2017-02-21] MEDS ORDERED: Metoprolol 100 MG TABLET PO SCH (21:42)
[2017-02-21] MEDS ORDERED: Melatonin 3 MG TABLET PO PRN (22:59)
[2017-02-22] MEDS: Bumetanide 1 MG/4 ML VIAL IVP SCH ×3 (00:29→17:13)
[2017-02-22] MEDS: Mirtazapine 15 MG TABLET PO SCH ×2 (00:30→22:26)
[2017-02-22 05:49] LABS: Basophils % 0.4 %; Eosinophils % 0.4 %; Hematocrit 28.9 % (35.3-44.9); Hemoglobin 9.6 g/dL (11.5-15.4); Immature Granulocytes % 0.3 % (0-4); Lymphocytes # 0.3 K/mcL (0.6-4.6); Lymphocytes % 3.5 %; Mean Corpuscular HGB Conc 33.2 g/dL (31.6-35.5); Mean Corpuscular Hemoglobin 32.8 pg (28.0-33.3); Mean Corpuscular Volume 98.6 fL (83.0-100.0); Mean Platelet Volume 11.1 fL (9.4-12.4); Monocytes # 0.7 K/mcL (0.0-1.3); Monocytes % 9.9 %; Platelet Count 159 K/mcL (140-400); Red Blood Count 2.93 M/mcL (3.82-4.97); Red Cell Distribution Width 14.6 % (11.5-14.5); Segmented Neutrophils % 85.5 %
[2017-02-22 06:05] LABS: Calcium 8.9 mg/dL (8.6-10.8); Potassium 2.9 mEq/L (3.5-4.5)
[2017-02-22 07:03] LABS: Activated Partial Thrombo Time 26.5 Seconds (26.0-36.0)
[2017-02-22] MEDS: Acetaminophen 325 MG TABLET PO PRN ×2 (08:25→19:30)
[2017-02-22 08:29] LABS: INR 1.4; Prothrombin Time 14.8 Seconds (9.4-12.1)
[2017-02-22] MEDS ORDERED: Isosorbide MONOnitrate (24 HR) 30 MG TAB.ER.24H PO SCH (09:00)
[2017-02-22] MEDS ORDERED: Venlafaxine XR (24 HR) 37.5 MG CAP.ER.24H PO SCH (09:00)
[2017-02-22] MEDS ORDERED: Carbidopa/Levodopa 25/100 TABLET PO SCH (09:00)
[2017-02-22] MEDS ORDERED: Potassium Chloride Elixir 20 MEQ/15 ML UDC PO SCH (09:16)
[2017-02-22] MEDS: Aspirin 81 MG TAB.CHEW PO SCH (10:47)
--- NOTE | 2017-02-22 12:21 | Internal Med History&Physical ---
Date of Encounter: 02/22/17 Time of Encounter: 11:55 Assessment and Plan (1) Dyspnea Current visit: Yes Status: Acute Suspect multifactorial etiology including heart failure with pneumonia. Qualifiers: Dyspnea type: shortness of breath Qualified Code(s): R06.02 - Shortness of breath; R06.00 - Dyspnea, unspecified; R06.01 - Orthopnea (2) Chronic diastolic (congestive) heart failure Current visit: No Status: Chronic Will add lisinopril and Lanoxin and increase isosorbide dose. Continue Bumex and metoprolol at present doses. (3) CKD (chronic kidney disease) stage 3, GFR 30-59 ml/min Current visit: Yes Status: Chronic We will monitor renal indices periodically. (4) Anemia Current visit: No Status: Acute Will order anemia testing in a.m. Qualifiers: Anemia type: unspecified type Qualified Code(s): D64.9 - Anemia, unspecified (5) Atrial fibrillation Current visit: No Status: Chronic Continue ASA Qualifiers: Atrial fibrillation type: paroxysmal Qualified Code(s): I48.0 - Paroxysmal atrial fibrillation (6) UTI (urinary tract infection) Current visit: Yes Status: Acute Continue Rocephin. Add Lactobacillus Qualifiers: Urinary tract infection type: site unspecified Hematuria presence: without hematuria Qualified Code(s): N39.0 - Urinary tract infection, site not specified Internal Medicine - H&P: HPI Chief complaint: Dyspnea Admitted From: Emergency Dept Plans for Post Hospital Care: Home History of present illness: Ms. Villafana is a 76 year old female came to emergency room for the nursing home staff reported dyspnea present for 3-4 days with worsening over the previous 24 hours. There was no significant cough plaints of pain. There is no vomiting or diarrhea reported. She was evaluated emergency room and felt to have UTI and heart failure. Was admitted to [facility] floor for ongoing care needs. She has dementia and could not give significant history. Available history is obtained from her [id number] who is in the room as well as her [facility] hospitalization records from September 2016. She has history of hypertension, atrial fibrillation, and "CHF" although an echocardiogram done 12/21/2015 showed LVEF of 55% with indeterminate diastolic function. There was reported biatrial enlargement although left atrial size was 4.0 cm. Right atrial sizes not recorded. There was reported to be moderate mitral stenosis, mild MR, mild TR, and moderate pulmonary regurgitation with estimated RVSP of 60. She had a Regadenoson EST 05/04/2015 which showed nondiagnostic EKG changes due to baseline ST abnormalities. Perfusion imaging was negative for ischemia or infarct. She has not had [place] DVT or pulmonary embolus. She was started on Bumex and Imdur at discharge has continued these. Past Med Surg Social Fam HX - Past Medical History Medical history: asthma, atrial fibrillation, CHF, CVA, dementia, hypertension, migraine, TIA, other Psychiatric history: anxiety, depression - Past Surgical History Surgical History: heart valve replacement, hysterectomy - Social History Smoking Status: Never smoker Smokeless Tobacco Status: No Alcohol use: none Drug use: none - Family History Father Hx Family Cancer: Yes (Colon) Hx Family GI Disorders: Yes Internal Medicine - H&P: Meds Melatonin [Melatin] 5 mg PO HS 12/03/14 [History] Metoprolol [Lopressor] 100 mg PO BID 12/03/14 [History] Venlafaxine [Effexor] 37.5 mg PO DAILY 12/03/14 [History] Calcitriol [Rocaltrol] 0.25 mcg PO DAILY 09/23/16 [History] Carbidopa/Levodopa 25/100 [Sinemet 25/100] 1 each PO 1200,1700 09/23/16 [History ] Mirtazapine [Remeron] 22.5 mg PO HS 09/23/16 [History] Omeprazole [PriLOSEC] 20 mg PO DAILY 09/23/16 [History] Potassium Chloride [K-Tab ER] 20 meq PO DAILY 09/23/16 [History] Quetiapine Fumarate [Seroquel] 25 mg PO HS 09/23/16 [History] Aspirin 81 mg PO DAILY tab.chew 09/25/16 [Rx] Bumetanide [Bumex] 0.5 mg PO DAILY #15 tablet 09/25/16 [Rx] Isosorbide MONOnitrate (24 HR) [Imdur] 30 mg PO DAILY #30 tab.er.24h 09/25/16 [ Rx] Carbidopa/Levodopa 25/100 [Sinemet 25/100] 1.5 each PO QAM 01/10/17 [History] Polyethylene Glycol 3350 [MiraLAX] 17 gm PO DAILY 11/29/17 [History] 3 Allergy/AdvReac Type Severity Reaction Status Date / Time amitriptyline [From Elavil] Allergy Hives Verified 02/22/17 04:13 clarithromycin [From Biaxin] Allergy Hives Verified 02/22/17 04:13 codeine Allergy See Verified 02/22/17 04:13 Comments Erythromycin Base Allergy Hives Verified 02/22/17 04:13 fluticasone Allergy Hives Verified 02/22/17 04:13 [From Advair Diskus] gabapentin Allergy Hives Verified 02/22/17 04:13 guaifenesin [From Mucinex] Allergy Hives Verified 02/22/17 04:13 levofloxacin [From Levaquin] Allergy Hives Verified 02/22/17 04:13 Penicillins Allergy Hives Verified 02/22/17 04:13 povidone-iodine Allergy Rash Verified 02/22/17 04:13 [From Betadine] prochlorperazine Allergy Hives Verified 02/22/17 04:13 [From Compazine] salmeterol Allergy Hives Verified 02/22/17 04:13 [From Advair Diskus] soap [From Betadine] Allergy Rash Verified 02/22/17 04:13 Streptomycin Allergy Hives Verified 02/22/17 04:13 Zafirlukast [From Accolate] Allergy Hives Verified 02/22/17 04:13 All Systems PM: A 10-system review of systems was performed and is negative for pertinent findings except as documented above in the HPI. Review of systems: Review of systems from her September 2016 [facility] hospitalization were reviewed and revised as below. Gen.: Her weight has decreased from 68.039 kg on 09/25/2016 to 62.199 kg on admission now Cardiovascular: As per history of present illness Respiratory: She has had pneumonia on several occasions in the past. She is a lifelong nonsmoker. She has a diagnosis of asthma. She uses oxygen 16/10. She has not tested for sleep apnea. GI: There is no known disorders of liver gallbladder or exocrine pancreas : She has chronic kidney disease stage III and follows with a [place] structural welder. There are no other known kidney or bladder disorders Neurologic: She has Parkinson's disease and a diagnosis of dementia. 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 She has not had seizures Endocrine: Family reports borderline hyperlipidemia but denies diabetes or thyroid disease Hematology/oncology: She had macrocytic anemia on blood work in emergency room. There is no history of internal malignancy Psychiatric: She has history of depression Musk skeletal: She had left intertrochanteric hip fracture with nail repair by Dr. Chu December 2016. She has not ambulated since the surgery. She has no significant arthritis gout or other bone joint or muscle disorders otherwise. - Constitutional Vitals: Temp Pulse Resp BP Pulse Ox 100.3 F H 62 20 152/78 93 02/22/17 10:46 02/22/17 10:46 02/22/17 06:57 02/22/17 10:46 02/22/17 11:15 Exam: Gen.: She is well-developed well-nourished female lying in bed who appears in no acute distress at present time HEENT: Head is atraumatic and normocephalic. Eyes: EOMI. There is no scleral icterus. Mouth: Mucosa is moist. Neck: Supple and nontender. There is no thyromegaly or adenopathy noted. Heart: Irregularly irregular without murmurs or gallops Lungs: She has shallow breath sounds. No wheezes or crackles are heard Abdomen: Soft and nontender. No masses or guarding are noted. Extremities: There is no cyanosis edema or clubbing noted. Dorsalis pedis and posttibial pulses are trace palpable bilaterally. Neurologic: Mental status: She is able to answer an occasional question but seems to be a poor historian and is not conversational. Cranial nerves: Facial movements are symmetric. Forehead wrinkles bilaterally. Tongue protrudes midline. EOMI. Motor: She has stiffness on passive range of motion. No further neurologic testing is attempted. Skin: Warm and dry Internal Med - H&P Results - Labs CBC & Chem 7: 02/22/17 05:41 02/22/17 05:41 Labs: Short CBC 02/22/17 Range/Units 05:41 WBC 7.1 (4.3-11.1) K/mcL Hgb 9.6 L (11.5-15.4) g/dL Hct 28.9 L (35.3-44.9) % Plt Count 159 (140-400) K/mcL Neutrophils # 6.0 (1.6-8.9) K/mcL [facility] 02/22/17 05:41 Sodium 142 Potassium 2.9 L Chloride 99 Carbon Dioxide 31 H BUN 20 Creatinine 1.26 H Glucose 117 H Calcium 8.9
[2017-02-22] MEDS: Carbidopa/Levodopa 25/100 TABLET PO SCH ×2 (13:16→17:15)
[2017-02-22] MEDS: Potassium Chloride Elixir 20 MEQ/15 ML UDC PO SCH ×2 (14:22→22:26)
[2017-02-22] MEDS: *HR* Digoxin 0.125 MG TABLET PO SCH (14:22)
[2017-02-22 18:08] LABS: Candida albicans by PCR Not Detected (Not Detect); Candida glabrata by PCR Not Detected (Not Detect); Candida krusei by PCR Not Detected (Not Detect); Candida parapsilosis by PCR Not Detected (Not Detect); Candida tropicalis by PCR Not Detected (Not Detect); Escherichia coli by PCR ***DETECTED*** (Not Detect); Klebsiella oxytoca by PCR Not Detected (Not Detect); Klebsiella pneumoniae by PCR Not Detected (Not Detect); Pseudomonas aeruginosa by PCR Not Detected (Not Detect); Serratia marcescens by PCR Not Detected (Not Detect); blaKPC Carbapenem-Resist Gene Not Detected (Not Detect)
[2017-02-22 18:09] LABS: Acinetobacter baumannii by PCR Not Detected (Not Detect); Enterococcus by PCR Not Detected (Not Detect); Staphylococcus aureus by PCR Not Detected (Not Detect); Streptococcus agalactiae(B)PCR Not Detected (Not Detect); Streptococcus by PCR Not Detected (Not Detect); Streptococcus pneumoniae PCR Not Detected (Not Detect); Streptococcus pyogenes (A) PCR Not Detected (Not Detect)
[2017-02-22] MEDS: Lactobacillus 1 EACH CAP.SPRINK PO SCH (22:26)
[2017-02-23 06:13] LABS: Basophils % 0.4 %; Eosinophils # 0.2 K/mcL (0.0-0.6); Eosinophils % 2.8 %; Hematocrit 29.3 % (35.3-44.9); Hemoglobin 9.6 g/dL (11.5-15.4); Immature Granulocytes % 0.4 % (0-4); Lymphocytes # 0.6 K/mcL (0.6-4.6); Lymphocytes % 11.2 %; Mean Corpuscular HGB Conc 32.8 g/dL (31.6-35.5); Mean Corpuscular Hemoglobin 32.2 pg (28.0-33.3); Mean Corpuscular Volume 98.3 fL (83.0-100.0); Mean Platelet Volume 11.5 fL (9.4-12.4); Monocytes % 19.3 %; Neutrophils # 3.5 K/mcL (1.6-8.9); Platelet Count 179 K/mcL (140-400); Red Blood Count 2.98 M/mcL (3.82-4.97); Red Cell Distribution Width 14.4 % (11.5-14.5); Segmented Neutrophils % 65.9 %
[2017-02-23 06:31] LABS: Alanine Aminotransferase < 6 Units/L (0-55); Albumin 2.7 g/dL (3.5-5.0); Albumin/Globulin Ratio 0.9 (1.1-2.2); Alkaline Phosphatase 107 Units/L (38-126); Aspartate Amino Transferase 17 Units/L (5-34); BUN/Creatinine Ratio 21 (6-26); Bilirubin,Total 0.6 mg/dL (0.2-1.2); Blood Urea Nitrogen 24 mg/dL (7-20); Calcium 8.6 mg/dL (8.6-10.8); Carbon Dioxide 32 mEq/L (19-29); Chloride 103 mEq/L (98-109); Globulin 2.9 g/dL (2.4-3.5); Glucose 97 mg/dL (70-99); Magnesium 1.7 mg/dL (1.6-2.6); Osmolality,Calculated 306 (280-300); Potassium 3.3 mEq/L (3.5-4.5); Sodium 146 mEq/L (136-145); Total Protein 5.6 g/dL (6.0-8.3); eGFR For African Americans 57 (> 60); eGFR For Non-African Americans 47 (> 60)
[2017-02-23 07:09] LABS: Platelet Estimate Normal (Normal)
[2017-02-23] MEDS: Bumetanide 1 MG/4 ML VIAL IVP SCH (08:46)
[2017-02-23] MEDS: Aspirin 81 MG TAB.CHEW PO SCH (08:48)
[2017-02-23] MEDS: Lactobacillus 1 EACH CAP.SPRINK PO SCH ×2 (08:48→21:46)
[2017-02-23] MEDS: *HR* Digoxin 0.125 MG TABLET PO SCH (08:48)
[2017-02-23] MEDS: Carbidopa/Levodopa 25/100 TABLET PO SCH ×3 (09:11→18:11)
--- NOTE | 2017-02-23 10:12 | Internal Med Progress Note ---
Date of Encounter: 02/23/17 Time of Encounter: 10:05 - Assessment and plan (1) Dyspnea Current Visit: Yes Status: Acute Assessment and plan: February 23. Continue present regimen Qualifiers: Dyspnea type: shortness of breath Qualified Code(s): R06.02 - Shortness of breath; R06.00 - Dyspnea, unspecified; R06.01 - Orthopnea (2) Chronic diastolic (congestive) heart failure Current Visit: No Status: Chronic Assessment and plan: February 23. BN peptide is improved at 383. Continue present regimen. (3) CKD (chronic kidney disease) stage 3, GFR 30-59 ml/min Current Visit: Yes Status: Chronic Assessment and plan: February 23. Creatinine has decreased 1.12. Continue present regimen. (4) Anemia Current Visit: No Status: Acute Assessment and plan: February 23. Anemia testing is pending Qualifiers: Anemia type: unspecified type Qualified Code(s): D64.9 - Anemia, unspecified (5) Atrial fibrillation Current Visit: No Status: Chronic Assessment and plan: February 23. Continue aspirin Qualifiers: Atrial fibrillation type: paroxysmal Qualified Code(s): I48.0 - Paroxysmal atrial fibrillation (6) UTI (urinary tract infection) Current Visit: Yes Status: Acute Assessment and plan: February 23. Urine and blood cultures show Escherichia coli. Sensitivity report is pending. Continue Rocephin and lactobacillus. Will discharge home tomorrow if stable Qualifiers: Urinary tract infection type: site unspecified Hematuria presence: without hematuria Qualified Code(s): N39.0 - Urinary tract infection, site not specified - Subjective Interval history: February 23. No new problems have arisen. - Constitutional Vitals: Temp Pulse Resp BP Pulse Ox 98.1 F 60 17 140/62 97 02/23/17 07:43 02/23/17 07:43 02/23/17 07:43 02/23/17 07:43 02/23/17 07:43 Exam: She is resting comfortably in bed and appears in no acute distress. She is minimally talkative. I reviewed her medications and lab results. I discussed her case with her and caregiver Internal Medicine: Result - Labs CBC & Chem 7: 02/23/17 05:30 02/23/17 05:30 Labs: Short CBC 02/23/17 Range/Units 05:30 WBC 5.3 (4.3-11.1) K/mcL Hgb 9.6 L (11.5-15.4) g/dL Hct 29.3 L (35.3-44.9) % Plt Count 179 (140-400) K/mcL Neutrophils # 3.5 (1.6-8.9) K/mcL BMP 02/23/17 05:30 Sodium 146 H Potassium 3.3 L Chloride 103 Carbon Dioxide 32 H BUN 24 H Creatinine 1.12 H Glucose 97 Calcium 8.6 Liver Function 02/23/17 Range/Units 05:30 Total Bilirubin 0.6 (0.2-1.2) mg/dL AST 17 (5-34) Units/L ALT < 6 (0-55) Units/L Alkaline Phosphatase 107 (38-126) Units/L Albumin 2.7 L (3.5-5.0) g/dL - ABG Interpretation ABG results: PT/INR, D-dimer PT 14.8 Seconds (9.4-12.1) H 02/22/17 05:41 Consult Discharge Plan - Plan Referrals: Babatunde Messina DO [Primary Care Provider] - 1 week
[2017-02-23 10:32] LABS: % Iron Saturation 10 % (15-50); Iron 23 mcg/dL (50-170); Transferrin 172 mg/dL (180-382)
[2017-02-23 10:56] LABS: Ferritin 271 ng/ml (5-204)
[2017-02-23 11:03] LABS: Folate 6.5 ng/mL (7.0-31.4)
--- NOTE | 2017-02-23 16:26 | Electrocardiograph Report ---
[address] [address] Test Date: 2017-02-21 Pat Name: Ariela Villafana Department: [id number] Room: [facility] Gender: F Tacker Off: [id number] : 1940 Requested By: Aislinn Hammonds Order Number: [id number] Reading MD: [place] Measurements Intervals [place] Rate: 68 P: MD: 0 QRS: -1 QRSD: 85 T: -1 QT: 367 QTc: 384 Interpretive Statements ATRIAL FIBRILLATION NONSPECIFIC ST & T-WAVE ABNORMALITY ABNORMAL RHYTHM ECG Electronically Signed On 02-23-2017 16:25:11 EST by [place]el Grove
[2017-02-23] MEDS: Mirtazapine 15 MG TABLET PO SCH (21:46)
[2017-02-24 05:25] LABS: BUN/Creatinine Ratio 19 (6-26); Blood Urea Nitrogen 18 mg/dL (7-20); Calcium 8.9 mg/dL (8.6-10.8); Carbon Dioxide 32 mEq/L (19-29); Chloride 100 mEq/L (98-109); Glucose 93 mg/dL (70-99); Osmolality,Calculated 294 (280-300); Potassium 4.2 mEq/L (3.5-4.5); Sodium 141 mEq/L (136-145); eGFR For African Americans > 60 (> 60); eGFR For Non-African Americans 56 (> 60)
[2017-02-24 06:24] VITALS: BP 164/79
[2017-02-24] MEDS: Carbidopa/Levodopa 25/100 TABLET PO SCH (07:01)
[2017-02-24] MEDS: Lactobacillus 1 EACH CAP.SPRINK PO SCH (08:28)
[2017-02-24] MEDS: Aspirin 81 MG TAB.CHEW PO SCH (08:28)
[2017-02-24] MEDS: *HR* Digoxin 0.125 MG TABLET PO SCH (08:29)
[2017-02-24] MEDS ORDERED: Bumetanide 1 MG TABLET PO SCH (09:00)
--- NOTE | 2017-02-24 09:37 | Discharge Summary ---
Date of Encounter: 02/24/17 Time of Encounter: 09:20 - Discharge Diagnosis (1) UTI (urinary tract infection) Priority: Primary Status: Acute Qualifiers: Urinary tract infection type: site unspecified Hematuria presence: without hematuria Qualified Code(s): N39.0 - Urinary tract infection, site not specified (2) Chronic diastolic (congestive) heart failure Priority: Secondary Status: Chronic (3) CKD (chronic kidney disease) stage 3, GFR 30-59 ml/min Priority: Secondary Status: Chronic (4) Anemia Priority: Secondary Status: Acute Qualifiers: Anemia type: unspecified type Qualified Code(s): D64.9 - Anemia, unspecified (5) Atrial fibrillation Priority: Secondary Status: Chronic Qualifiers: Atrial fibrillation type: paroxysmal Qualified Code(s): I48.0 - Paroxysmal atrial fibrillation - Discharge Medications Prescriptions: Cefuroxime PO [Ceftin] 500 mg PO Q12HR #6 tablet Ascorbic Acid [Vitamin C] 500 mg PO DAILY #30 tablet Digoxin [Lanoxin] 0.125 mg PO DAILY #30 tablet Ferrous Sulfate 325 mg PO DAILY #30 tablet Isosorbide DInitrate [Isordil] 20 mg PO Q8H #90 tablet Lactobacillus [Culturelle] 1 each PO BID #6 cap.sprink Lisinopril [Zestril] 20 mg PO DAILY #30 tablet Potassium Chloride [K-Tab ER] 20 meq PO BID #60 tablet.er Home Medications: Melatonin [Melatin] 5 mg PO HS 12/03/14 [History] Metoprolol [Lopressor] 100 mg PO BID 12/03/14 [History] Venlafaxine [Effexor] 37.5 mg PO DAILY 12/03/14 [History] Calcitriol [Rocaltrol] 0.25 mcg PO DAILY 09/23/16 [History] Carbidopa/Levodopa 25/100 [Sinemet 25/100] 1 each PO 1200,1700 09/23/16 [History ] Mirtazapine [Remeron] 22.5 mg PO HS 09/23/16 [History] Omeprazole [PriLOSEC] 20 mg PO DAILY 09/23/16 [History] Quetiapine Fumarate [Seroquel] 25 mg PO HS 09/23/16 [History] Bumetanide [Bumex] 0.5 mg PO DAILY #15 tablet 09/25/16 [Rx] Carbidopa/Levodopa 25/100 [Sinemet 25/100] 1.5 each PO QAM 01/10/17 [History] Polyethylene Glycol 3350 [MiraLAX] 17 gm PO DAILY 02/21/17 [History] Ascorbic Acid [Vitamin C] 500 mg PO DAILY #30 tablet 02/24/17 [Rx] Aspirin 81 mg PO Q48H 365 Days tab.chew 02/24/17 [Rx] Cefuroxime PO [Ceftin] 500 mg PO Q12HR #6 tablet 02/24/17 [Rx] Digoxin [Lanoxin] 0.125 mg PO DAILY #30 tablet 02/24/17 [Rx] Ferrous Sulfate 325 mg PO DAILY #30 tablet 02/24/17 [Rx] Isosorbide DInitrate [Isordil] 20 mg PO Q8H #90 tablet 02/24/17 [Rx] Lactobacillus [Culturelle] 1 each PO BID #6 cap.sprink 02/24/17 [Rx] Lisinopril [Zestril] 20 mg PO DAILY #30 tablet 02/24/17 [Rx] Potassium Chloride [K-Tab ER] 20 meq PO BID #60 tablet.er 02/24/17 [Rx] Allergies/Adverse Reactions: 3 Allergy/AdvReac Type Severity Reaction Status Date / Time amitriptyline [From Elavil] Allergy Hives Verified 02/22/17 04:13 clarithromycin [From Biaxin] Allergy Hives Verified 02/22/17 04:13 codeine Allergy See Verified 02/22/17 04:13 Comments Erythromycin Base Allergy Hives Verified 02/22/17 04:13 fluticasone Allergy Hives Verified 02/22/17 04:13 [From Advair Diskus] gabapentin Allergy Hives Verified 02/22/17 04:13 guaifenesin [From Mucinex] Allergy Hives Verified 02/22/17 04:13 levofloxacin [From Levaquin] Allergy Hives Verified 02/22/17 04:13 Penicillins Allergy Hives Verified 02/22/17 04:13 povidone-iodine Allergy Rash Verified 02/22/17 04:13 [From Betadine] prochlorperazine Allergy Hives Verified 02/22/17 04:13 [From Compazine] salmeterol Allergy Hives Verified 02/22/17 04:13 [From Advair Diskus] soap [From Betadine] Allergy Rash Verified 02/22/17 04:13 Streptomycin Allergy Hives Verified 02/22/17 04:13 Zafirlukast [From Accolate] Allergy Hives Verified 02/22/17 04:13 Date of admission: 02/23/17 10:19 Primary care physician: Babatunde Messina DO - Patient Status Disposition: Home, Self-Care Condition: Good Functional capacity at discharge: bed bound Overall status at discharge: patient is progressing back to baseline - Discharge Instructions Follow Up With: Babatunde Messina DO [Primary Care Provider] - 1 week Additional Instructions: CBC with differential, BMP, BN peptide in one week - Diet and Activity Activity: resume usual activities as tolerated Diet: advance to your usual diet Hospital course: Ms. Villafana is a 76 year old female who came to emergency room after the [place] [facility] staff reported dyspnea present for 3-4 days with worsening over the previous 24 hours. There was no significant cough or complaints of pain. There was no vomiting or diarrhea reported. She was evaluated in emergency room and felt to have UTI and heart failure. She was as admitted to [facility] floor for ongoing care needs. Initial orders were written by the emergency room physician. I saw her on February 22 and performed a history and physical. She was treated empirically with Rocephin and lactobacillus for possible UTI. Urine culture returned showing Escherichia coli with sensitivity to the Rocephin. She had clinical improvement with WBC remaining normal and left shift resolving by day of discharge. She remained afebrile the last 24 hours hospitalization. She will be discharged home with 3 additional days of Ceftin and lactobacillus. Anemia testing showed iron 23, transferrin saturation 10%, transferrin 172, ferritin 271, B12 198, and folate 6.5. She was given a B12 injection prior to discharge and will continue supplemental B12, folic acid, iron and vitamin C at discharge. Her PCP can monitor her hemoglobin response to treatment. Heart failure was treated with initiation of Lanoxin and lisinopril. Isosorbide dose was increased. Bn peptide improved to 207 by day of discharge. Azotemia improved with BUN and creatinine increasing to 18 and 0.96 respectively this may GFR 56 by day of discharge. On February 24 I felt she was stable for discharge home where she will follow with her PCP Dr. Babatunde Messina. CBC and BMP will be checked in one week. - Time Spent with Patient Total time spent providing and/or coordinating discharge services: - Constitutional Vitals: Temp Pulse Resp BP Pulse Ox 97.6 F 63 18 164/79 96 02/24/17 06:23 02/24/17 06:23 02/24/17 06:23 02/24/17 06:23 02/24/17 06:23
[2017-02-24] MEDS ORDERED: Cyanocobalamin (B-12) 1,000 MCG/ML VIAL IM ONE (09:41)
== END 2017-02-24 11:16 | disposition home or self-care (01) | DRG 690 ==
LOC: EMEROOPIK 17:49 → INPPIK 17:49
PROVIDERS: ADMIT Internal Medicine; ATTEND Internal Medicine